=== PATIENT | female | born 1990 | race American Indian/Alaskan Native ===

== ENCOUNTER 2018-09-13 15:26 | Emergency (ER) | payer MEDICAID ==
--- NOTE | 2018-09-13 15:58 | Event Note ---
ED Screening Note ED Screening Note: pt presents for sickle cell pain for the last 9 days last admission for sicle cell 2 months ago has blood exchanges last one was on september 07 takes dilaudid, methadone, benadryl, folic acid at home other PMHx asthma allergy: morphine-redness/itching This initial assessment/diagnostic orders/clinical plan/treatment(s) is/are subject to change based on patients health status, clinical progression and re- assessment by fellow clinical providers in the ED. Further treatment and workup at subsequent clinical providers discretion. Patient/guardian urged not to elope from the ED as their condition may be serious if not clinically assessed and managed. Initial orders include: labs
[2018-09-13 16:45] LABS: Hemoglobin 11.2 gm/dl (10.1-14.3); Mean Corpuscular HGB Conc 34 % (30-34); Mean Corpuscular Volume 93 fl (79-97); Platelet Count 466 K/mm3 (140-440); Red Blood Count 3.53 M/mm3 (3.65-5.03)
[2018-09-13 16:58] LABS: BUN/Creatinine Ratio 16; Blood Urea Nitrogen 14 mg/dL (7-17); Calcium 9.6 mg/dL (8.4-10.2); Hemolysis Index 36
[2018-09-13 17:21] LABS: Red Cell Distribution Width 20.4 % (13.2-15.2)
[2018-09-13 19:45] LABS: Basophils % (Manual) 0 % (0.0-1.8); Total Cells Counted 100
[2018-09-13 19:46] LABS: Anisocytosis 1+; Target Cells 1+
[2018-09-13 19:47] LABS: Platelet Estimate Consistent w Auto
[2018-09-13] MEDS ORDERED: NACL 0.9% 1000 ML 1,000 ML IV ONE (20:26)
[2018-09-13] MEDS ORDERED: DILAUDID IV ONE ×2 (20:26→21:24)
[2018-09-13] MEDS ORDERED: TORADOL IV ONE (20:26)
--- NOTE | 2018-09-13 20:31 | Emergency Department Report ---
ED General Adult HPI - General Chief complaint: Sickle Cell Crisis Stated complaint: SICKLE CELL CRISIS Time Seen by Provider: 09/13/18 15:55 Source: patient Mode of arrival: Ambulatory Limitations: No Limitations - History of Present Illness Initial comments: 28-year-old female presents to ED with complaint of sickle cell pain crisis. Patient states she has been experiencing pain in her lower back and legs for 9 days. Patient states she is having intermittent chest pain, in the area of her sternal bone, but denies chest pain at this time. Patient states the location of her pain is typical of her usual pain crises. Denies shortness of breath or fever. Patient says she takes methadone, Dilaudid for pain at home, however no relief. Seen by her accredited legal secretary, Eugene Mares a few days ago. States he only refilled her prescriptions. States afterward, she went to [place] [facility]. Was given 3 doses of pain meds at that time and discharged from the ER. 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 -: days(s) (9) Location: chest, back, left, right, upper extremity Severity scale (0 -10): 8 Quality: aching Consistency: constant Improves with: none Worsens with: none Associated Symptoms: chest pain. denies: cough, fever/chills, shortness of breath - Related Data Home Medications Medication Instructions Recorded Confirmed Last Taken Hydroxyurea [Droxia] 1,500 mg PO DAILY 05/09/14 07/05/15 07/04/15 20:00 Hydromorphone HCl [Dilaudid] 8 mg PO Q12H PRN 07/05/15 07/05/15 Unknown Methadone [Dolophine] 20 mg PO Q12H PRN 07/05/15 07/05/15 Unknown Previous Rx's Medication Instructions Recorded Last Taken Type Folic Acid [Folvite] 1 mg PO QDAY #30 tablet 04/06/14 07/04/15 20:00 Rx Labetalol [Labetalol 100mg TAB] 100 mg PO BID #60 tablet 04/06/14 2 Days Ago Rx ~12/21/14 Allergies Allergy/AdvReac Type Severity Reaction Status Date / Time No Known Allergies Allergy Verified 07/05/15 17:22 ED Review of Systems ROS: Stated complaint: SICKLE CELL CRISIS Other details as noted in HPI Comment: All other systems reviewed and negative Constitutional: denies: chills, fever Respiratory: denies: cough, shortness of breath Cardiovascular: chest pain Gastrointestinal: denies: nausea, vomiting Musculoskeletal: as per HPI ED Past Medical Hx - Past Medical History Previous Medical History?: Yes Hx Hypertension: Yes Hx Congestive Heart Failure: No Hx Diabetes: No Hx Deep Vein Thrombosis: No Hx Renal Disease: No Hx Sickle Cell Disease: Yes (SS) Hx Seizures: No Hx Asthma: Yes Hx COPD: No Hx HIV: No Additional medical history: Sickle cell disease, - Surgical History Past Surgical History?: Yes Hx Cholecystectomy: Yes Additional Surgical History: csection x2; spleEnectomy, Smart port left arm - Social History Smoking Status: Current Every Day Smoker Substance Use Type: Marijuana, Other - Medications Home Medications: Home Medications Medication Instructions Recorded Confirmed Last Taken Type Folic Acid [Folvite] 1 mg PO QDAY #30 tablet 04/06/14 07/05/15 07/04/15 20:00 Rx Labetalol [Labetalol 100mg TAB] 100 mg PO BID #60 tablet 04/06/14 07/05/15 2 Days Ago Rx ~12/21/14 Hydroxyurea [Droxia] 1,500 mg PO DAILY 05/09/14 07/05/15 07/04/15 20:00 History Hydromorphone HCl [Dilaudid] 8 mg PO Q12H PRN 07/05/15 07/05/15 Unknown History Methadone [Dolophine] 20 mg PO Q12H PRN 07/05/15 07/05/15 Unknown History ED Physical Exam - General Limitations: No Limitations General appearance: alert, in no apparent distress, other (talking on cell phone) - Head Head exam: Present: atraumatic, normocephalic - Eye Eye exam: Present: normal appearance - ENT ENT exam: Present: mucous membranes moist - Neck Neck exam: Present: normal inspection - Respiratory Respiratory exam: Present: normal lung sounds bilaterally. Absent: respiratory distress - Cardiovascular Cardiovascular Exam: Present: regular rate, normal rhythm - GI/Abdominal GI/Abdominal exam: Absent: distended - Extremities Exam Extremities exam: Present: normal inspection - Neurological Exam Neurological exam: Present: alert, oriented X3 - Psychiatric Psychiatric exam: Present: normal affect, normal mood - Skin Skin exam: Present: warm, dry, intact, normal color ED Course Vital Signs 09/13/18 09/13/18 09/13/18 15:37 20:09 20:30 Temperature 98.8 F 98.8 F Pulse Rate 83 90 Respiratory 22 25 H 21 Rate Blood Pressure 133/92 Blood Pressure 138/78 [Right] O2 Sat by Pulse 100 100 Oximetry 09/13/18 09/13/18 20:40 21:00 Temperature Pulse Rate Respiratory 21 16 Rate Blood Pressure Blood Pressure [Right] O2 Sat by Pulse Oximetry - Reevaluation(s) Reevaluation #1: 09/13/18 21:25 Pt requested benadryl. 25 mg PO dose ordered. Pt stated she needed more for itching, another 25 mg PO ordered. Pt refused 2nd dose. Pt does not have a rash, no wheezing or resp distress, no signs of anaphylaxis or serious allergic reaction. Pt insisting on having IV benadryl. Explained that she would not be receiving both dilaudid and benadryl IV due to the possibility of oversedation. Reevaluation #2: 09/13/18 22:00 Pt refused the 2 mg dilaudid when it was ordered. Instead wanted to ask and see if she could get 3 mg IV instead. Pt advised she will be given medication in 2 mg doses. If still experiencing pain, she can be admitted for her pain crisis. Reevaluation #3: 09/13/18 22:17 Pt states she would like her pain medication and then her discharge paperwork. States her ride is here and waiting for her. ED Medical Decision Making - Lab Data Result diagrams: 09/13/18 16:05 09/13/18 16:05 - Radiology Data Radiology results: report reviewed, image reviewed - Medical Decision Making 28 yo F with sickle cell pain crisis. Hemoglobin normal. Retic count elevated. Pt given 2 doses of dilaudid 2mg. Upset that she did not receive IV benadryl with it. Reports allergy to dilaudid, causing itching, however, no rash present, no signs of anaphylaxis. Pt called for her ride and requested discharge papers. I advised pt to stay if her pain is still uncontrolled, especially if this is her 2nd ER visit for same pain crisis. Pt states she is unable to stay because she has a child at home and no one to care for them. So, pt refused admission. Return precautions given. Follow-up advised. - Differential Diagnosis anemia requiring transfusion, pain crisis, acute chest syndrome Critical care attestation.: If time is entered above; I have spent that time in minutes in the direct care of this critically ill patient, excluding procedure time. ED Disposition Clinical Impression: Sickle cell pain crisis Disposition: DC-01 TO HOME OR SELFCARE Is pt being admited?: No Condition: Stable Instructions: Sickle Cell Crisis (ED) Referrals: PRIMARY CARE, [Primary Care Provider] - 3-5 Days Time of Disposition: 22:18
[2018-09-13] MEDS ORDERED: BENADRYL PO ONE ×3 (20:41→21:25)
--- NOTE | 2018-09-13 21:01 | XRay Report ---
PROCEDURE: XR CHEST 1V AP TECHNIQUE: Chest radiograph single view. HISTORY: pain COMPARISONS: None . FINDINGS: Heart: Normal. Mediastinum/Vessels: Normal. Lungs/Pleural space: Normal. Bony thorax: No acute osseous abnormality. Life support devices: A left-sided PICC line is noted terminating at the level of cavoatrial junction . A right-sided chest port is noted with its catheter terminating at the level of cavoatrial junction . IMPRESSION: No acute cardiopulmonary abnormality. This document is electronically signed by Delroy Jameson MD., September 13 2018 08:59:19 PM ET
[2018-09-13] MEDS: BENADRYL PO ONE ×2 (21:34→22:32)
[2018-09-13] MEDS ORDERED: FLUSH HEPARIN IV ONE ×2 (23:00→23:10)
[2018-09-13 23:27] VITALS: BP 131/72
== END 2018-09-13 23:12 | disposition home or self-care (01) ==
LOC: ED 15:26
DX: D57.811 Other sickle-cell disorders with acute chest syndrome (principal); I10 Essential (primary) hypertension; J45.909 Unspecified asthma, uncomplicated; F17.200 Nicotine dependence, unspecified, uncomplicated; F12.10 Cannabis abuse, uncomplicated; Z90.49 Acquired absence of other specified parts of digestive tract; Z90.89 Acquired absence of other organs; Z79.899 Other long term (current) drug therapy
CPT/HCPCS: 36415; 71045; 80048; 85007; 85025; 85045; 96374; 96375; 96376; 99284; J1170; J1642; J1885; J7030